=== PATIENT | male | born 1970 | race Caucasian/White ===

== ENCOUNTER 2019-07-20 12:54 | Emergency (ER) | payer MEDICAID ==
[~2019-07-20] VITALS: Ht 167.6 cm; Wt 77.1 kg
[2019-07-20 13:10] VITALS: BP_SYST 153
[2019-07-20] MEDS ORDERED: KETOROLAC TROMETHAMINE 30 MG VIAL IM ONE (13:45)
[2019-07-20] MEDS ORDERED: metFORMIN HCL 500 MG TABLET PO ONE (13:45)
[2019-07-20 15:09] VITALS: BP_SYST 170
[2019-07-20] MEDS ORDERED: ACETAMINOPHEN 500 MG TABLET PO ONE (15:15)
== END 2019-07-20 15:20 | disposition home or self-care (01) ==
LOC: SED 12:54
DX: T81.30XA Disruption of wound, unspecified, initial encounter (principal); E11.9 Type 2 diabetes mellitus without complications; Z89.611 Acquired absence of right leg above knee; Z89.412 Acquired absence of left great toe; X58.XXXA Exposure to other specified factors, initial encounter
CPT/HCPCS: 82962; 96372; 99283; J1885